=== PATIENT | male | born 1965 | race Caucasian/White ===

== ENCOUNTER 2017-07-22 19:17 | Emergency (ER) | payer BC ==
[2017-07-22 19:39] VITALS: BP 132/75
--- NOTE | 2017-07-22 19:50 | EDPHY ---
H & P Time Seen by Provider: 07/22/17 19:24 HPI/ROS: 51-year-old male with history of hypertension dmh-qfyzxhu-epbkftugd diabetes hyperlipidemia, obesity, bilateral uqxrn-zhn-yccw amputations presents complaining of rash on his left stump. He states this is developed over several weeks and feels like it began initially as a chafing injury and his prior prosthesis he recently has an updated sleeve in his prosthesis and is concerned because it has continued to bother him and has gotten slightly larger. There is no drainage from his wound. There is no fever no chills. He admits that he has been participating in a contest for having the most"steps"at work and he has been [place] anywhere [place] [id number] [place] [id number] steps a day. He states he is "kicking ass, despite having no real legs!" Review of systems As per HPI General no fever no chills no weakness HEENT no eye pain no eye discharge. No eye redness, no sore throat Respiratory no cough, no shortness of breath Cardiac no chest pain, no peripheral edema GI no abdominal pain, no diarrhea, no constipation, no nausea, no vomiting no flank pain, no hematuria, no dysuria Musculoskeletal no myalgias, no joint pain Heme no easy bruising, no easy bleeding Endo no polyuria, no polydipsia Skin positive rashes, no pruritus Neuro no syncope, no dizziness, no headaches Psych is no suicidal ideation, no homicidal ideation Past Medical/Surgical History: Hypertension Hyperlipidemia Ihs-wqnvcxd-htpwbaviv diabetes Bilateral ezitu-qes-andi amputation Morbid obesity Hypothyroidism Social History: Denies alcohol and drug use Smoking Status: Former smoker Physical Exam: 51-year-old male alert and oriented no acute distress nontoxic appearance, afebrile Able to ambulate without difficulty wearing his prostheses HEENT atraumatic normocephalic, extraocular muscles intact, anicteric Oropharynx negative for erythema negative exudate, tolerating her own secretions Neck supple no meningismus Lungs clear to auscultation bilaterally Heart regular rate and rhythm without murmur rub or gallop Abdomen nondistended normoactive bowel sounds soft nontender Back no CVA tenderness, no step-offs, no spinal tenderness Extremities Bilateral ihbkn-nti-iaax amputation Left stump 3 x 3 cm area with patchy denuded skin, no drainage no foul odor no fluctuance no crepitus no lymphangitic streaks Full range of motion at knee Constitutional: Initial Vital Signs Temperature (C) 36.8 C 07/22/17 19:34 Heart Rate 83 07/22/17 19:34 Respiratory Rate 18 07/22/17 19:34 Blood Pressure 132/75 H 07/22/17 19:34 O2 Sat (%) 93 07/22/17 19:34 O2 Delivery Mode Room Air Allergies/Adverse Reactions: No Known Allergies Allergy (Verified 07/22/17 19:32) Home Medications: Medication Instructions Recorded Amlodipine Besylate 07/22/17 Atorvastatin Calcium 07/22/17 Levothyroxine 07/22/17 Metformin HCl 07/22/17 Medical Decision Making ED Course/Re-evaluation: Patient seen and evaluated for rash on left stump. Impression abrasions/friction injury to distal left stump no evidence of infection no evidence for abscess or necrotizing fasciitis Plan Advised to keep area clean and dry and to decrease usage of his prosthesis until it heals Advise patient to return for worsening rash, fever, drainage. Follow-up primary care physician Differential Diagnosis: Differential diagnosis considered but not limited to: Cellulitis, abscess, necrotizing fasciitis, blister, abrasion Departure - Departure Disposition: Home, Routine, Self-Care Clinical Impression: History of below knee amputation, Abrasion hip/leg Condition: Good Instructions: Abrasion (ED) Referrals: Kenya Garcia MD [Primary Care Provider] - As per Instructions
== END 2017-07-22 20:04 | disposition home or self-care (01) ==
LOC: CED 19:17
DX: S70.212A Abrasion, left hip, initial encounter (principal); I10 Essential (primary) hypertension; E11.9 Type 2 diabetes mellitus without complications; Z79.84 Long term (current) use of oral hypoglycemic drugs; Z87.891 Personal history of nicotine dependence; Z89.512 Acquired absence of left leg below knee; Z89.511 Acquired absence of right leg below knee; X58.XXXA Exposure to other specified factors, initial encounter